=== PATIENT | female | born 1940 | race Caucasian/White ===

== ENCOUNTER 2024-01-03 16:55 | Emergency (ER) | payer MEDICARE ==
[~2024-01-03] VITALS: Ht 152.4 cm; Wt 63.5 kg
[~2024-01-03 16:55] MED LIST: ASPI81EC98 PO; GEMF600T5 PO; GLIM4TAB42 PO; HYDR-4004 PO; LISI10TA30 PO; LISI20TA29 PO; METF100028 PO
--- NOTE | 2024-01-03 16:58 | NUR ---
BIBA BLS TO ER BED 9
[2024-01-03 17:06] VITALS: BP 130/70; PULSE 85; RESP 16; TEMP 98.2; O2SAT 98
--- NOTE | 2024-01-03 17:07 | NUR ---
Patient being evaluated by physician at bedside.
--- NOTE | 2024-01-03 17:14 | NUR ---
ASSUMED PATIENT CARE, NURSING ASSESSMENT COMPLETED.
[2024-01-03] MEDS ORDERED: ACET500T99 PO (18:49)
[2024-01-03] MEDS ORDERED: BACO TP (18:51)
--- NOTE | 2024-01-03 18:55 | NUR ---
Patient discharged with v/s stable. Written and verbal after care instructions given and explained. Patient alert, oriented and verbalized understanding of instructions. Wheel Chair Assisted with to car. All questions addressed prior to discharge. ID band removed. Patient advised to follow up with PMD. Rx of TYLENOL, BACITRACIN given. Patient educated on indication of medication including possible reaction and side effects. Opportunity to ask questions provided and answered.
[2024-01-03 18:56] VITALS: BP 130/70; PULSE 85; RESP 16; TEMP 98.2; O2SAT 98
== END 2024-01-03 18:55 | disposition home or self-care (01) ==
LOC: MED 16:55
DX: S32.029A Unspecified fracture of second lumbar vertebra, initial encounter for closed fracture (principal); S32.039A Unspecified fracture of third lumbar vertebra, initial encounter for closed fracture; S32.049A Unspecified fracture of fourth lumbar vertebra, initial encounter for closed fracture; M25.522 Pain in left elbow; M54.2 Cervicalgia; E11.9 Type 2 diabetes mellitus without complications; I10 Essential (primary) hypertension; Z79.899 Other long term (current) drug therapy; Z79.82 Long term (current) use of aspirin; I25.2 Old myocardial infarction; W18.39XA Other fall on same level, initial encounter; Y92.009 Unspecified place in unspecified non-institutional (private) residence as the place of occurrence of the external cause; Y93.89 Activity, other specified; Y99.8 Other external cause status
CPT/HCPCS: 70450; 72125; 72131; 73080; 99284; Q0092